=== PATIENT | female | born 1985 | race Caucasian/White ===

== ENCOUNTER 2020-08-04 20:15 | Emergency (ER) | payer BC ==
[~2020-08-04] VITALS: Ht 162.5 cm; Wt 54.5 kg
[~2020-08-04 20:15] MED LIST: ALPR1T PO; AZIT500T2; CLIN300C12 PO; HYDR-22; METH4TAB PO; PENT100C5 PO; TRAM-42 PO
[2020-08-04] MEDS ORDERED: PRD20T PO (20:49)
[2020-08-04] MEDS ORDERED: SULF1TAB35 PO (20:49)
[2020-08-04] MEDS ORDERED: RX-TRIMETH/SULFA. 160-800 MG (BACTRIM DS) TAB PPK#2 PO STA (20:49)
--- NOTE | 2020-08-04 20:49 | ED Integumentary General ---
General Chief Complaint: Skin/Wound Problems Stated Complaint: R ANKLE INSECT BITE Source: patient History of Present Illness Date Seen by Provider: August 04, 2020 Time Seen by Provider: 20:40 Initial Comments PT ARRIVES VIA POV FROM HOME C/O POSSIBLE INSECT BITE TO MEDIAL RIGHT ANKLE--NOTICED AFTER WORK ON Thursday08/02/20--HAS OFFICE JOB/AT DESK ALL DAY C/O PAIN, REDNESS AND SLIGHT SWELLING TO THE AREA DID NOT SEE OR FEEL ANYTHING BITE/STING HER NO DRAINAGE, NO PUSTULE OR OPEN WOUND NO STREAKS NO FEVER NO HISTORY OF SIMILAR. Allergies and Home Medications Allergies Coded Allergies: No Known Drug Allergies (Unverified , 07/05/09) Home Medications Alprazolam 1 Mg Tablet, 1 TAB PO TID PRN, (Reported) Clindamycin HCl 300 Mg Capsule, 300 MG PO QID Prescribed by: OLIVERIO PLUMMER on 01/27/162038 Methylprednisolone 4 Mg Tab.ds.pk, 4 MG PO UD Prescribed by: OLIVERIO PLUMMER on 01/27/162038 Prednisone 20 Mg Tab, 40 MG PO DAILY Prescribed by: OLIVERIO PLUMMER on 08/04/202048 Sulfamethoxazole/Trimethoprim 1 Each Tablet, 1 EACH PO BID Prescribed by: OLIVERIO PLUMMER on 08/04/202048 Tramadol HCl 50 Mg Tablet, 50 MG PO Q4H Prescribed by: OLIVERIO PLUMMER on 01/27/162038 [[id number] Mg] , 100 MG PO TID, (Reported) Past Xcmxfjb-Ycilvp-Mxctuh Hx Patient Social History Recent Hopitalizations: No Immunizations Up To Date Tetanus Booster (TDap): Unknown Seasonal Allergies Seasonal Allergies: Yes Past Medical History Bladder Surgery, Breast Reproductive Disorders: Yes (endometriosis) Female Reproductive Disorders: Endometriosis Sexually Transmitted Disease: No Anxiety Physical Exam Vital Signs Vital Signs - First Documented 08/04/20 20:40 Temp 36.8 Pulse 89 Resp 18 B/P (MAP) 134/88 (103) Pulse Ox 100 Capillary Refill : Progress/Results/Core Measures Results/Orders My Orders Orders - OLIVERIO PLUMMER DO Rx-Trimeth/Sulfameth Ds Tab (Rx-Bactrim/ (08/04/20 20:49) Prednisone Tablet (Deltasone Tablet) (08/04/20 21:00) Medications Given in ED Current Medications Medications Dose Ordered Sig/Mihai Route Start Time Stop Time Status Last Admin Dose Admin Prednisone 40 mg ONCE ONCE PO 08/04/20 21:00 08/04/20 21:01 08/04/20 20:54 40 MG Vital Signs/I&O 08/04/20 08/04/20 20:40 20:55 Temp 36.8 36.8 Pulse 89 89 Resp 18 18 B/P (MAP) 134/88 (103) 134/88 (103) Pulse Ox 100 100 Departure Impression Primary Impression: Cellulitis of left lower extremity without foot Additional Impression: Gvqpyunwag-uzllfpkag-fucjduo (DPT) vaccination administered at current visit Disposition: HOME, SELF-CARE Condition: Stable Departure-Patient Inst. Decision time for Depature: 20:47 Referrals: [facility] (PCP/Family) Primary Care Physician Patient Instructions: Cellulitis (Skin Infection), Adult ED, Diphtheria and Tetanus Toxoids, and Acellular Pertussis Vaccine Add. Discharge Instructions: COOL COMPRESSES TO AREA AT 20 MINUTE INTERVALS TYLENOL NEEDED FOR PAIN FOLLOW UP WITH [facility] IN 2-3 DAYS FOR FURTHER CARE--CALL IN AM FOR APPOINTMENT All discharge instructions reviewed with patient and/or family. Voiced understanding. Scripts Prednisone (Prednisone) 20 Mg Tab 40 MG PO DAILY, #6 TAB 0 Refills Prov: OLIVERIO PLUMMER DO 08/04/20 Sulfamethoxazole/Trimethoprim (Bactrim Ds Tablet) 1 Each Tablet 1 EACH PO BID, #20 TAB Prov: OLIVERIO PLUMMER DO 08/04/20 OLIVERIO PLUMMER DO August 04, 2020 20:49
[2020-08-04 20:55] VITALS: BP 134/88
[2020-08-04] MEDS ORDERED: predniSONE 10 MG TAB PO ONE (21:00)
[2020-08-04] MEDS ORDERED: TETANUS,DIPTH,PERTUSS P/F (BOOSTRIX) 0.5 ML VIAL IM ONE (21:00)
== END 2020-08-04 21:04 | disposition home or self-care (01) ==
LOC: EDUNIT# 20:15 → ER 20:17
DX: L03.116 Cellulitis of left lower limb (principal); F41.9 Anxiety disorder, unspecified; Z23 Encounter for immunization; Z79.899 Other long term (current) drug therapy; Z79.52 Long term (current) use of systemic steroids
CPT/HCPCS: 90715; 99283

== ENCOUNTER → 2021-03-19 | Outpatient (CLI) | payer BC ==
[~2021-03-19] MED LIST changes: +CLIN-144 PO; -CLIN300C12 PO; +PRD20T PO; +SULF1TAB38 PO
--- NOTE | 2021-03-19 13:53 | Diagnostic Imaging Report ---
PROCEDURE: Pelvic comp/transvaginal sonogram. TECHNIQUE: Complete transabdominal and transvaginal pelvic ultrasound was performed. In addition, limited pelvic Doppler was performed. INDICATION: Pelvic pain. Uterus is retroverted measuring 6.6 x 3.8 x 4.8 cm. Endometrium is 2 mm in thickness. No myometrial mass is detected. Right ovary measures 3.2 x 1.4 x 2.1 cm and left ovary measures 2.9 x 1.2 x 1.9 cm. Right ovary does contain approximately 13 mm cyst. There is blood flow to both ovaries. No adnexal mass or free fluid is seen. IMPRESSION: 13 mm right ovarian cyst. Study is otherwise unremarkable. Dictated by: Dictated on workstation # [id number]
== END ==
LOC: RAD 10:15
PROVIDERS: ATTEND Nurse Practitioner
DX: N83.201 Unspecified ovarian cyst, right side (principal)
CPT/HCPCS: 76830; 76856

== ENCOUNTER 2021-04-10 02:00 | Emergency (ER) | payer BC, OTHER ==
[2021-04-10 02:10] VITALS: BP 122/90
[2021-04-10] MEDS ORDERED: KETOROLAC 30 MG/ML VIAL IVP STA (02:22)
--- NOTE | 2021-04-10 02:29 | ED EENT ---
History of Present Illness General Chief Complaint: Dental Problems/Pain Stated Complaint: TOOTH PAIN Source: patient History of Present Illness Date Seen by Provider: Apr 10, 2021 Time Seen by Provider: 02:17 Initial Comments PT ARRIVES VIA POV FROM HOME-DROVE SELF HERE C/O DENTAL PAIN TO LEFT LOWER WISDOM TOOTH AREA FOR A WEEK HAS HAD PAIN AND SWELLING TO THE AREA AND WENT TO [facility] ON Thursday04/05/21 AND WAS PRESCRIBED AUGMENTIN WENT BACK TO [facility] AGAIN TODAY FOR INCREASED PAIN AND SWELLING AND WAS GIVEN A SHOT OF UNKNOWN MEDICATION--POSSIBLY AN ANTIBIOTIC, DID NOT CHANGE ORAL ANTIBIOTIC NO FEVER PT HAS HAD PROBLEMS WITH THIS TOOTH SEVERAL TIMES IN THE PAST FOR SEVERAL YEARS, AND HAS BEEN THIS BAD BEFORE. HAS BEEN REFERRED TO DR. GARCIA AND [facility], BUT HAS NOT FOLLOWED THROUGH WITH THOSE REFERRALS AT ANY TIME. PT STATES SHE IS MOVING TO [place] IN 2 WEEKS, AND HAS AN APPOINTMENT WITH A DENTIST THERE. PT TOOK ALEVE X 1 THIS AFTERNOON PT HAS NOT HAD COVID-19 OR FLU VACCINES DENIES RECENT ILLNESS NO CHRONIC ILLNESSES LMP--IN LAST MONTH, NORMAL. PCP: [facility] Allergies and Home Medications Allergies Coded Allergies: No Known Drug Allergies (Unverified , 07/05/09) Patient Home Medication List Home Medication List Reviewed: Yes Alprazolam (Xanax) 1 Mg Tablet, 1 TAB PO TID PRN, (Reported) Entered as Reported by: FIFI SHELLEY on 12/23/11 1115 Clindamycin HCl (Clindamycin HCl) 300 Mg Capsule, 300 MG PO QID Prescribed by: OLIVERIO PLUMMER on 01/27/162038 Clindamycin HCl (Clindamycin HCl) 300 Mg Capsule, 300 MG PO QID Prescribed by: OLIVERIO PLUMMER on 04/10/21 0455 Hydrocodone/Acetaminophen (Hydrocodone-Acetamin 5-325 mg) 1 Each Tablet, 1 EACH PO Q4-6 HOURS PRN for PAIN Prescribed by: OLIVERIO PLUMMER on 04/10/21 0455 Ketorolac Tromethamine (Ketorolac Tromethamine) 10 Mg Tablet, 10 MG PO Q6H Prescribed by: OLIVERIO PLUMMER on 04/10/21 0455 Methylprednisolone (Medrol) 4 Mg Tab.ds.pk, 4 MG PO UD Prescribed by: OLIVERIO PLUMMER on 01/27/162038 Prednisone (Prednisone) 20 Mg Tab, 40 MG PO DAILY Prescribed by: OLIVERIO PLUMMER on 08/04/202048 Sulfamethoxazole/Trimethoprim (Bactrim Ds Tablet) 1 Each Tablet, 1 EACH PO BID Prescribed by: OLIVERIO PLUMMER on 08/04/202048 Tramadol HCl (Ultram) 50 Mg Tablet, 50 MG PO Q4H Prescribed by: OLIVERIO PLUMMER on 01/27/162038 [[id number] Mg] , 100 MG PO TID, (Reported) Entered as Reported by: MAGDALENA GALLO on 10/20/09 1737 Review of Systems Review of Systems Constitutional: no symptoms reported Eyes: No Symptoms Reported Ears: No Symptoms Reported Nose: no symptoms reported Mouth: see HPI Throat: no symptoms reported Respiratory: no symptoms reported Cardiovascular: no symptoms reported Musculoskeletal: no symptoms reported Skin: no symptoms reported Neurological: No Symptoms Reported Hematologic/Lymphatic: No Symptoms Reported Past Tlynzih-Rhktyn-Njkwar Hx Patient Social History Tobacco Use?: Yes Tobacco type used: Cigarettes Smoking Status: Current Everyday Smoker Use of E-Cig and/or Vaping dev: Yes Substance use?: Yes Substance type: Marijuana Alcohol Use?: Yes Alcohol Frequency: Couple times a week Pt feels they are or have been: No Immunizations Up To Date Tetanus Booster (TDap): Unknown Influenza Vaccine Up-to-Date: No; Not Current Seasonal Allergies Seasonal Allergies: Yes Past Medical History Surgeries: Yes Bladder Surgery, Breast Respiratory: No Cardiac: No Neurological: No Reproductive Disorders: Yes (endometriosis) Female Reproductive Disorders: Endometriosis Sexually Transmitted Disease: No Genitourinary: No Gastrointestinal: No Musculoskeletal: No Endocrine: No HEENT: Yes (DENTAL PROBLEMS) Cancer: No Psychosocial: Yes Anxiety Integumentary: No Blood Disorders: No Physical Exam Vital Signs Vital Signs - First Documented 04/10/21 02:10 Temp 36.4 Pulse 99 Resp 18 B/P (MAP) 122/90 (101) Pulse Ox 100 O2 Delivery Room Air Height, Weight, BMI Height: 5'5" Weight: 110lbs. oz. 49.887871oz; 20.00 BMI Method:Stated General Appearance: WD/WN, no apparent distress, other (REEKS OF CIGARETTES) Eyes: bilateral eye normal inspection Ears: bilateral ear TM normal Mouth/Throat: trismus, other (MODERATE SWELLING TO LEFT MANDIBLE AREA. UNABLE TO VISUALIZE ANY POSTERIOR TEETH DUE TO TRISMUS/PAIN WITH OPENING MOUTH. 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, no motor/sensory deficits, alert, normal mood/affect, oriented x 3 Skin: normal color, warm/dry; No ecchymosis Progress/Results/Core Measures Results/Orders Lab Results Laboratory Tests Test 04/10/21 02:30 Range/Units White Blood Count 9.6 4.3-11.0 10^3/uL Red Blood Count 4.91 3.80-5.11 10^6/uL Hemoglobin 15.3 11.5-16.0 g/dL Hematocrit 46 35-52 % Mean Corpuscular Volume 93 80-99 fL Mean Corpuscular Hemoglobin 31 25-34 pg Mean Corpuscular Hemoglobin Concent 33 32-36 g/dL Red Cell Distribution Width 12.1 10.0-14.5 % Platelet Count 292 130-400 10^3/uL Mean Platelet Volume 9.6 9.0-12.2 fL Immature Granulocyte % (Auto) 0 % Neutrophils (%) (Auto) 60 42-75 % Lymphocytes (%) (Auto) 27 12-44 % Monocytes (%) (Auto) 11 0-12 % Eosinophils (%) (Auto) 2 0-10 % Basophils (%) (Auto) 1 0-10 % Neutrophils # (Auto) 5.7 1.8-7.8 10^3/uL Lymphocytes # (Auto) 2.6 1.0-4.0 10^3/uL Monocytes # (Auto) 1.0 0.0-1.0 10^3/uL Eosinophils # (Auto) 0.2 0.0-0.3 10^3/uL Basophils # (Auto) 0.1 0.0-0.1 10^3/uL Immature Granulocyte # (Auto) 0.0 0.0-0.1 10^3/uL Sodium Level 139 135-145 MMOL/L Potassium Level 4.1 3.6-5.0 MMOL/L Chloride Level 103 98-107 MMOL/L Carbon Dioxide Level 22 21-32 MMOL/L Anion Gap 14 5-14 MMOL/L Blood Urea Nitrogen 5 L 7-18 MG/DL Creatinine 0.76 0.60-1.30 MG/DL Estimat Glomerular Filtration Rate 104 BUN/Creatinine Ratio 7 Glucose Level 109 H 70-105 MG/DL Calcium Level 9.7 8.5-10.1 MG/DL Corrected Calcium 9.4 8.5-10.1 MG/DL Total Bilirubin 0.7 0.1-1.0 MG/DL Aspartate Amino Transf (AST/SGOT) 11 5-34 U/L Alanine Aminotransferase (ALT/SGPT) 11 0-55 U/L Alkaline Phosphatase 83 40-136 U/L Total Protein 8.3 H 6.4-8.2 GM/DL Albumin 4.4 3.2-4.5 GM/DL Amylase Level 33 25-125 U/L Lipase 12 8-78 U/L Serum Test, Qualitative NEGATIVE NEGATIVE My Orders Orders - OLIVERIO PLUMMER DO Ed Iv/Invasive Line Start (04/10/21 02:18) Amylase (04/10/21 02:18) Cbc With Automated Diff (04/10/21 02:18) Comprehensive Metabolic Panel (04/10/21 02:18) Hcg,Qualitative Serum (04/10/21 02:18) Lipase (04/10/21 02:18) Ct Maxillofacial W (04/10/21 02:18) Ed Iv/Invasive Line Start (04/10/21 02:22) Lactated Ringers (Lr 1000 Ml Iv Solution (04/10/21 02:30) Ketorolac Injection (Toradol Injection) (04/10/21 02:22) Clindamycin 900 Mg/50 Ml Ivpb (Cleocin P (04/10/21 02:30) Iohexol Injection (Omnipaque 350 Mg/Ml 1 (04/10/21 04:00) Received Contrast (Hold Metformin- Contr (04/10/21 04:00) Sodium Chloride Flush (Catheter Flush Sy (04/10/21 04:00) Ns (Ivpb) (Sodium Chloride 0.9% Ivpb Bag (04/10/21 04:00) Rx-Hydrocodone/Apap 5-325 Mg (Rx-Vicodin (04/10/21 05:00) Medications Given in ED Current Medications Medications Dose Ordered Sig/Mihai Route Start Time Stop Time Status Last Admin Dose Admin Acetaminophen/ Hydrocodone Bitart 1 ea Q4H PRN PO 1/19/22 05:00 04/10/21 05:11 DC 04/10/21 05:08 1 EA Clindamycin Phosphate/Dextrose 50 ml @ 100 mls/hr ONCE ONCE IV 04/10/21 02:30 04/10/21 02:59 DC 04/10/21 02:55 100 MLS/HR Iohexol 150 ml ONCE ONCE IV 04/10/21 04:00 04/10/21 04:01 DC 04/10/21 03:54 100 ML Lactated Ringer's 1,000 ml @ 0 mls/hr Q0M ONCE IV 04/10/21 02:30 04/10/21 02:31 DC 04/10/21 03:25 1,000 MLS/HR Sodium Chloride 10 ml NEEDED PRN IV 04/10/21 04:00 04/10/21 05:11 DC 04/10/21 03:54 10 ML Sodium Chloride 100 ml ONCE ONCE IV 04/10/21 04:00 04/10/21 04:01 DC 04/10/21 03:54 80 ML Vital Signs/I&O 04/10/21 02:10 Temp 36.4 Pulse 99 Resp 18 B/P (MAP) 122/90 (101) Pulse Ox 100 O2 Delivery Room Air Progress Progress Note : Progress Note GIVEN IV TORADOL AND CLINDAMYCIN SLEPT /RESTED QUIETLY FOR ENTIRE ER STAY Diagnostic Imaging Comments CT MAXILLOFACIALS--2.3 X 1.4 X 3.2 CM ABSCESS OVERLYING LEFT MANDIBLE. PER [facility] VIA FAX AT 0450 Reviewed: Reviewed by Me Departure Impression Primary Impression: Dental abscess Disposition: 01 HOME, SELF-CARE Condition: Stable Departure-Patient Inst. Decision time for Depature: 04:50 Referrals: [facility] (PCP/Family) Primary Care Physician JABIER GARCIA DDOnel Patient Instructions: Tooth Abscess ED Add. Discharge Instructions: MOIST HEAT TO AREA AT 20 MINUTE INTERVALS, YOU MAY ALTERNATE WITH ICE AT 20 MINUTE INTERVALS IF NEEDED FOR PAIN AND SWELLING STOP AUGMENTIN FOLLOW UP WITH DR. GARCIA THIS WEEK--CALL THIS MORNING TO SCHEDULE APPOINTMENT All discharge instructions reviewed with patient and/or family. Voiced understanding. Scripts Hydrocodone/Acetaminophen (Hydrocodone-Acetamin 5-325 mg) 1 Each Tablet 1 EACH PO Q4-6 HOURS PRN for PAIN, #20 TAB Prov: ELIAN,OLIVERIO K DO 04/10/21 Ketorolac Tromethamine (Ketorolac Tromethamine) 10 Mg Tablet 10 MG PO Q6H for Pain, #15 TAB Prov: OLIVERIO PLUMMER DO 04/10/21 Clindamycin HCl (Clindamycin HCl) 300 Mg Capsule 300 MG PO QID for 10 Days, #40 CAP Prov: OLIVERIO PLUMMER DO 04/10/21 OLIVERIO PLUMMER DO Apr 10, 2021 02:29
[2021-04-10] MEDS ORDERED: CLINDAMYCIN 900 MG/50 ML IVPB 50 ML IV ONE (02:30)
[2021-04-10] MEDS ORDERED: LACTATED RINGERS 1,000 ML IV ONE (02:30)
[2021-04-10 02:38] LABS: BASOPHILS # (AUTO) 0.1 10^3/uL (0.0-0.1); BASOPHILS % (AUTO) 1 % (0-10); EOSINOPHILS # (AUTO) 0.2 10^3/uL (0.0-0.3); EOSINOPHILS % (AUTO) 2 % (0-10); HEMATOCRIT 46 % (35-52); HEMOGLOBIN 15.3 g/dL (11.5-16.0); LYMPHOCYTES # (AUTO) 2.6 10^3/uL (1.0-4.0); LYMPHOCYTES % (AUTO) 27 % (12-44); MEAN CORPUSCULAR HEMOGLOBIN 31 pg (25-34); MEAN CORPUSCULAR HGB CONC 33 g/dL (32-36); MEAN CORPUSCULAR VOLUME 93 fL (80-99); MEAN PLATELET VOLUME 9.6 fL (9.0-12.2); MONOCYTES % (AUTO) 11 % (0-12); NEUTROPHILS # (AUTO) 5.7 10^3/uL (1.8-7.8); NEUTROPHILS % (AUTO) 60 % (42-75); PLATELET COUNT 292 10^3/uL (130-400); WHITE BLOOD COUNT 9.6 10^3/uL (4.3-11.0)
[2021-04-10 02:50] LABS: ALBUMIN 4.4 GM/DL (3.2-4.5); POTASSIUM 4.1 MMOL/L (3.6-5.0)
[2021-04-10 02:51] LABS: CALCIUM 9.7 MG/DL (8.5-10.1)
[2021-04-10 02:52] LABS: TOTAL PROTEIN 8.3 GM/DL (6.4-8.2)
[2021-04-10 02:54] LABS: BILIRUBIN,TOTAL 0.7 MG/DL (0.1-1.0)
[2021-04-10 02:56] LABS: CREATININE SERUM 0.76 MG/DL (0.60-1.30)
[2021-04-10] MEDS ORDERED: HOLD METFORMIN - RECEIVED CONTRAST 20 ML VIAL IV SCH (04:00)
[2021-04-10] MEDS ORDERED: IOHEXOL 350 MG/ML 150 ML (OMNIPAQUE 350) VIAL IV ONE (04:00)
[2021-04-10] MEDS ORDERED: CATHETER FLUSH 10 ML SYR IV PRN (04:00)
[2021-04-10] MEDS ORDERED: NS 100 ML (IVPB) BAG IV ONE (04:00)
[2021-04-10] MEDS ORDERED: ACHD5005 PO (04:55)
[2021-04-10] MEDS ORDERED: CLIN-144 PO (04:55)
[2021-04-10] MEDS ORDERED: KETO10TA PO (04:55)
--- NOTE | 2021-04-10 06:57 | Diagnostic Imaging Report ---
PROCEDURE: CT maxillofacial with contrast. TECHNIQUE: After intravenous administration of contrast, axial images were obtained through the face and reformatted into coronal and sagittal planes. Auto Exposure Controls were utilized during the CT exam to meet ALARA standards for radiation dose reduction. INDICATION: Facial swelling. COMPARISON: CT maxillofacial 01/27/2016. FINDINGS: Large complex fluid collection with peripheral enhancement along the left mandible measuring up to 2.3 x 1.4 x 3.2 cm. No definite periapical lucencies or large caries are seen about the left mandibular dentition. No fractures. Normal alignment of the temporomandibular joints. The paranasal sinuses and visualized mastoids are clear. The skull base is intact. The orbits and visualized intracranial contents are negative. IMPRESSION: Complex peripherally enhancing fluid collection about the left mandible measuring up to 3.2 cm consistent with an abscess. Agree with preliminary interpretation. Dictated by: Dictated on workstation # [id number]
== END 2021-04-10 05:11 | disposition home or self-care (01) ==
LOC: EDUNIT# 02:00 → ER 02:04
DX: K04.7 Periapical abscess without sinus (principal); F41.9 Anxiety disorder, unspecified; F17.210 Nicotine dependence, cigarettes, uncomplicated; Z79.899 Other long term (current) drug therapy
CPT/HCPCS: 36415; 70487; 80053; 82150; 83690; 84703; 85025